=== PATIENT | female | born 1985 | race Caucasian/White ===

== ENCOUNTER 2018-01-25 10:32 | Emergency (ER) | payer OTHER ==
[2018-01-25] MEDS ORDERED: IBUPROFEN 800 MG TABLET PO ONE (11:23)
[2018-01-25] MEDS ORDERED: CYCLOBENZAPRINE HCL 10 MG TABLET PO ONE (11:23)
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
[2018-01-25 12:04] VITALS: BP 121/76
== END 2018-01-25 12:15 | disposition home or self-care (01) ==
LOC: ER 10:32
DX: S16.1XXA Strain of muscle, fascia and tendon at neck level, initial encounter (principal); R51 Headache; M54.9 Dorsalgia, unspecified; M54.2 Cervicalgia; V49.40XA Driver injured in collision with unspecified motor vehicles in traffic accident, initial encounter; Y93.89 Activity, other specified
CPT/HCPCS: 99283

== ENCOUNTER 2018-05-07 13:22 | Emergency (ER) | payer OTHER ==
--- NOTE | 2018-05-07 14:12 | ER Document Report ---
ED Medical Screen (RME) - General Chief Complaint: Pelvic Problem Stated Complaint: PELVIC PAIN Time Seen by Provider: 05/07/18 14:07 Notes: RAPID MEDICAL EVALUATION DISCLOSURE I have seen this patient as part of a Rapid Medical Evaluation and, if applicable, placed any initially appropriate orders. The patient will be seen and fully evaluated, including a full history and physical exam, by a provider ( in Main ED or Fast Track) when a room becomes available. 33-year-old female here with complaints of "something is dropping into my vagina " ongoing for the past 2 months. She states that she was having sex 2 days ago and it worsened. She felt the inside and states that "it feels smooth". She denies any previous history of cervical or uterine prolapse. She states that sometimes when she urinates, "it dribble is some". 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 EXAM No abdominal TTP TRAVEL OUTSIDE OF THE [place] IN LAST 30 DAYS: No - Related Data Allergies/Adverse Reactions: No Known Allergies Allergy (Verified 05/07/18 13:23) Past Medical History - Past Medical History Cardiac Medical History: Denies: Hx Coronary Artery Disease, Hx Heart Attack, Hx Hypertension Pulmonary Medical History: Reports: Hx Pneumonia - child Denies: Hx Asthma, Hx Bronchitis, Hx COPD Neurological Medical History: Denies: Hx Cerebrovascular Accident, Hx Seizures Renal/ Medical History: Denies: Hx Peritoneal Dialysis GI Medical History: Musculoskeltal Medical History: Denies Hx Arthritis, Denies Hx Fibromyalgia, Reports Hx Musculoskeletal Trauma Infectious Medical History: Past Surgical History: Reports: Hx Cholecystectomy. Denies: Hx Pacemaker - Immunizations Immunizations up to date: Yes Hx Diphtheria, Pertussis, Tetanus Vaccination: Yes Physical Exam - Vital signs Vitals: Temp Pulse Resp BP Pulse Ox 98.5 F 87 16 126/80 H 97 05/07/18 13:32 05/07/18 13:32 05/07/18 13:32 05/07/18 13:32 05/07/18 13:32 Course - Vital Signs Vital signs: Temp Pulse Resp BP Pulse Ox 98.5 F 87 16 126/80 H 97 05/07/18 13:32 05/07/18 13:32 05/07/18 13:32 05/07/18 13:32 05/07/18 13:32
--- NOTE | 2018-05-07 14:43 | ER Document Report ---
ED GI/ - General Chief Complaint: Pelvic Problem Stated Complaint: PELVIC PAIN Time Seen by Provider: 05/07/18 14:07 Mode of Arrival: Ambulatory Information source: Patient TRAVEL OUTSIDE OF THE [place] IN LAST 30 DAYS: No - HPI Patient complains to provider of: Vaginal pain Notes: 05/07/18 14:41 Patient is here with complaints of feeling like there is something hanging from her vagina. She states that she has a "heavy feeling" in her vaginal area. States that she felt like something was falling out of her vagina this morning and when she felt and looked she could feel something around she was able to push in. She does report a little bit of vaginal bleeding after intercourse a few nights ago. She has also been having some white thick vaginal discharge for the last few days. She denies any dysuria or hematuria. Complains of some occasional lower abdominal cramping and some lower back pain. She denies any injury. No bowel or bladder dysfunction. She denies fever. She denies rash. She denies numbness, tingling, weakness. She denies blood thinners. No chest pain or shortness of breath. Nothing seems to make her symptoms better or worse. - Related Data Allergies/Adverse Reactions: No Known Allergies Allergy (Verified 05/07/18 13:23) Past Medical History - Social History Smoking Status: Never Smoker Chew tobacco use (# tins/day): No Drug Abuse: None Family History: Reviewed & Not Pertinent Patient has suicidal ideation: No Patient has homicidal ideation: No - Past Medical History Cardiac Medical History: Denies: Hx Coronary Artery Disease, Hx Heart Attack, Hx Hypertension Pulmonary Medical History: Reports: Hx Pneumonia - child Denies: Hx Asthma, Hx Bronchitis, Hx COPD Neurological Medical History: Denies: Hx Cerebrovascular Accident, Hx Seizures Renal/ Medical History: Denies: Hx Peritoneal Dialysis GI Medical History: Musculoskeltal Medical History: Denies Hx Arthritis, Denies Hx Fibromyalgia, Reports Hx Musculoskeletal Trauma Infectious Medical History: Past Surgical History: Reports: Hx Cholecystectomy. Denies: Hx Pacemaker - Immunizations Immunizations up to date: Yes Hx Diphtheria, Pertussis, Tetanus Vaccination: Yes Review of Systems - Review of Systems -: Yes All other systems reviewed and negative Physical Exam - Vital signs Vitals: Temp Pulse Resp BP Pulse Ox 98.5 F 87 16 126/80 H 97 05/07/18 13:32 05/07/18 13:32 05/07/18 13:32 05/07/18 13:32 05/07/18 13:32 - Notes Notes: GENERAL: alert, cooperative, nontoxic, no distress. HEAD: normocephalic, atraumatic EYES: conjunctiva pink without discharge, no external redness or swelling. EARS: no external swelling, no external redness NOSE: atraumatic, no external swelling MOUTH/THROAT: mucous membranes moist and pink, posterior pharynx without erythema, swelling, exudate. No trismus or drooling. NECK: soft, supple, full range of motion, no meningismus. CHEST: no distress, lungs clear and equal throughout. No wheezing, rales, rhonchi. CARDIAC: regular rate and rhythm, no murmur, normal capillary refill, normal pulses. No peripheral edema noted. ABDOMEN: Soft, nontender. BACK: full range of motion, no CVA tenderness. EXTREMITIES: full range of motion of all extremities. No redness, no swelling. NEURO: alert and oriented x 3, no focal deficits, full range of motion of all extremities. PYSCH: appropriate mood, affect. Patient is cooperative. SKIN: pink, warm, dry, no rash. : Performed with female plant mechanic at the bedside. Mild redness and irritation to the labia majora and minora. No lesions or ulcerations. Palpable mass to the right lateral aspect of the vaginal wall. No significant tenderness to palpation. This is easily reducible. Cervix was closed. There was a moderate amount of white thick vaginal discharge present. No cervical motion tenderness. No adnexal tenderness or masses. Course - Re-evaluation Re-evalutation: 05/07/18 16:11 Patient is nontoxic-appearing with stable vitals. Patient is here with complaints of feeling like there is something hanging out of her vagina. This been present for the last few days. She also noticed a little bit of bleeding after intercourse a few days ago. No active bleeding now. She denies any significant pain. No vomiting. No fever. Her abdominal exam is benign with no tenderness. Vaginal exam shows protrusion to the right lateral vaginal wall consistent with possible vaginal wall hernia. Easily reducible and nontender. She did have some vaginal discharge present. Wet prep is negative. GC chlamydia cultures are currently pending, the patient states that she would prefer to wait until the cultures come back and be prophylactically treated. Urinalysis shows leukocyte Estrace with some white blood cells but also squamous epithelials. She denies any significant dysuria. Urine culture is currently pending at this time. This point the patient will be discharged home. She will be contacted if her gonorrhea or chlamydia culture is positive. She will be contacted if her urine culture is positive. She will be referred to [facility] regarding possible vaginal wall hernia. She is instructed to return the emergency department if she develops severe pain, persistent vomiting, fever , or for any further concerns. The patient is noted to have elevated blood pressure during today's emergency department visit. The patient was informed of this finding. The patient was instructed that this may be related to pre-hypertension and requires further evaluation with a primary care provider. The patient has no hypertensive symptoms at this time. The patient's emergency department workup and current diagnosis were explained to the patient and or family. Follow-up instructions were provided. Medications if prescribed were discussed. Instructions for when to return to the emergency department including specific worrisome symptoms were discussed with the patient and/or family. - Vital Signs Vital signs: Temp Pulse Resp BP Pulse Ox 98.5 F 87 16 126/80 H 97 05/07/18 13:32 05/07/18 13:32 05/07/18 13:32 05/07/18 13:32 05/07/18 13:32 - Laboratory Laboratory results interpreted by ok: 05/07/18 14:18 Ur Leukocyte Esterase LARGE H Discharge - Discharge Clinical Impression: Vaginal wall prolapse Condition: Stable Disposition: HOME, SELF-CARE Instructions: Vaginitis ([facility]) Additional Instructions: Follow-up with [facility] at the next available appointment. Return the emergency department for severe pain, fever, persistent vomiting, a mass that you cannot push back into place, or for any further concerns. He will be contacted for any positive cultures. Your blood pressure was elevated during today's visit. Have this rechecked with your doctor. Forms: Elevated Blood Pressure, Smoking Cessation Education Referrals: TI RAZO MD [ACTIVE STAFF] - Follow up as needed
[2018-05-07 14:55] LABS: APPEARANCE,URINE SLIGHTLY-CLOUDY; BILIRUBIN,URINE NEGATIVE (NEGATIVE); COLOR,URINE YELLOW; GLUCOSE, URINE NEGATIVE (NEGATIVE); KETONES,URINE NEGATIVE (NEGATIVE); LEUKOCYTE ESTERASE,URINE LARGE (NEGATIVE); NITRITE,URINE NEGATIVE (NEGATIVE); PROTEIN,URINE NEGATIVE (NEGATIVE); URINE SPECIFIC GRAVITY 1.008; UROBILINOGEN,URINE NEGATIVE mg/dL (<2.0)
[2018-05-07 15:28] LABS: T.VAGINALIS (WET MOUNT) NO TRICHOMONAS SEEN; WBCS (WET MOUNT) 3+ WBCS SEEN; YEAST (WET MOUNT) NO YEAST SEEN
[2018-05-07 16:27] VITALS: BP 119/77
[2018-05-07 16:53] LABS: CHLAM PCR NOT DETECTED (NOT DETECT); GON PCR NOT DETECTED (NOT DETECT)
== END 2018-05-07 16:25 | disposition home or self-care (01) ==
LOC: ER 13:22
DX: N81.10 Cystocele, unspecified (principal); R10.2 Pelvic and perineal pain; R03.0 Elevated blood-pressure reading, without diagnosis of hypertension; Z90.49 Acquired absence of other specified parts of digestive tract
CPT/HCPCS: 81001; 81025; 87086; 87088; 87186; 87210; 87491; 87591; 99284

== ENCOUNTER → 2018-08-23 | Outpatient (CLI) | payer OTHER ==
--- NOTE | 2018-08-23 14:37 | RADIOLOGY REPORT (SQ) ---
EXAM DESCRIPTION: CT PELVIS WITH COMPLETED DATE/TIME: 08/23/2018 1:42 pm REASON FOR STUDY: R19.09 OTHER INTRA-ABDOMINAL AND PELVIC SWELLING, MASS AND LUMP R19.09 OTHER INTR A-ABDOMINAL AND PELVIC SWELLING, MASS AND L COMPARISON: None. TECHNIQUE: CT scan of the pelvis performed with intravenous contrast. No oral contrast. Patient was injected with 100 mL of Omnipaque 350 IV without complication. Creatinine not required, patient less than 50 years old. Images reviewed with soft tissue and bone windows. Reconstructed coronal and sagittal MPR images rev iewed. All images stored on PACS. All CT scanners at this facility use dose modulation, iterative reconstruction, and/or weight based d osing when appropriate to reduce radiation dose to as low as reasonably achievable (ALARA). [facility]: Dose Right [facility]: CareDose [facility]: Dose Right [facility]: Teradose 4D [facility]: [employer] RADIATION DOSE: CT Rad equipment meets quality standard of care and radiation dose reduction techniq ues were employed. CTDIvol: 18.9 - 21.3 mGy. DLP: 1286 mGy-cm. mGy. LIMITATIONS: None. FINDINGS: A 3.8 cm craniocaudad by 3.3 cm transverse by 2 cm AP with cystic structure is present in the anterior upper 3rd of the vagina just to the left of midline. This is best shown on axial image 36 and sagittal image 48. This most likely represents a Que duct cyst along the anterolateral va ginal wall superior to the level of symphysis pubis. No other pelvic cysts or masses. No free pelvic fluid. No adenopathy. Uterus measures 10.5 x 5 x 7 cm in size. No fibroids. Endometrial stripe difficult to visualize by CT. Right ovary is 3 x 2.7 cm in size. Left ovary 3.7 x 2.6 cm in size. Urinary bladder, rectum unremarkable. Delayed images through the pelvis demonstrate that the left ureter is discrete from the vaginal lesio n. Bony structures unremarkable. No inguinal or femoral hernia. IMPRESSION: 3.8 x 3.3 x 2 cm cyst in the anterior upper 3rd of the vagina, likely a Que duct cys t. COMMENT: Radiographics;2011:31:[id number] TECHNICAL DOCUMENTATION: JOB ID: [id number] Quality ID # [id number]: Final reports with documentation of one or more dose reduction techniques (e.g., Au tomated exposure control, adjustment of the mA and/or kV according to patient size, use of iterative reconstruction technique) 2010 [employer]- All Rights Reserved Reading location - IP/workstation name: [email or web address]
== END ==
LOC: RAD 13:57
PROVIDERS: ATTEND Specialist
DX: R19.09 Other intra-abdominal and pelvic swelling, mass and lump (principal)
CPT/HCPCS: 72193

== ENCOUNTER 2018-10-13 05:43 | Day surgery (SDC) | payer OTHER ==
[2018-10-11 12:29] LABS: APPEARANCE,URINE SLIGHTLY-CLOUDY; BILIRUBIN,URINE NEGATIVE (NEGATIVE); COLOR,URINE STRAW; GLUCOSE, URINE NEGATIVE (NEGATIVE); KETONES,URINE NEGATIVE (NEGATIVE); LEUKOCYTE ESTERASE,URINE LARGE (NEGATIVE); NITRITE,URINE NEGATIVE (NEGATIVE); PROTEIN,URINE NEGATIVE (NEGATIVE); URINE SPECIFIC GRAVITY 1.004; UROBILINOGEN,URINE NEGATIVE mg/dL (<2.0)
[2018-10-11 13:05] LABS: HEMATOCRIT 39.6 % (36.0-47.0); HEMOGLOBIN 13.5 g/dL (12.0-15.5); MEAN CORPUSCULAR HEMOGLOBIN 30.4 pg (27.0-33.4); MEAN CORPUSCULAR HGB CONC 34.2 g/dL (32.0-36.0); MEAN CORPUSCULAR VOLUME 89 fl (80-97); PLATELET COUNT 344 10^3/uL (150-450); RED BLOOD COUNT 4.46 10^6/uL (3.72-5.28); RED CELL DISTRIBUTION WIDTH 13.6 % (11.5-14.0); WHITE BLOOD COUNT 8.3 10^3/uL (4.0-10.5)
[2018-10-11 13:32] LABS: ANION GAP 11 (5-19); BLOOD UREA NITROGEN 6 mg/dL (7-20); CALCIUM 9.5 mg/dL (8.4-10.2); CARBON DIOXIDE 27 mmol/L (22-30); CHLORIDE 102 mmol/L (98-107); GLUCOSE 88 mg/dL (75-110); POTASSIUM 4.4 mmol/L (3.6-5.0); SODIUM 140.4 mmol/L (137-145)
[~2018-10-13 05:43] MED LIST: CEFAZOLIN 1 GM/D5W RTU 1 GM/50 ML RTUPB IV ONE; CEFAZOLIN 1 GM/D5W RTU 1 GM/50 ML RTUPB IV PRN; LACTATED RINGERS 1000 ML IV PRN; LIDOCAINE 0.5% INJ-PF (5 MG/ML) 50 ML SDV SUBCUT PRN
[2018-10-13] MEDS ORDERED: PROPOFOL INJ 200 MG/20 ML VIAL IV ONE (06:59)
[2018-10-13] MEDS ORDERED: MIDAZOLAM 2 MG/2 ML INJ ONE (06:59)
[2018-10-13] MEDS ORDERED: FENTANYL CITRATE INJ/PF 100 MCG/2 ML AMPUL ONE (06:59)
[2018-10-13] MEDS ORDERED: ONDANSETRON HCL INJ/PF 4 MG/2 ML SDV ONE (06:59)
[2018-10-13] MEDS ORDERED: LIDOCAINE 1%/EPINEPHRINE INJ 20 ML VIAL ONE (07:21)
[2018-10-13] MEDS ORDERED: PROMETHAZINE HCL INJ 25 MG/1 ML VIAL IV PRN (07:36)
[2018-10-13] MEDS ORDERED: MORPHINE SULFATE 10 MG/ML INJ IV PRN (07:36)
[2018-10-13] MEDS ORDERED: FENTANYL CITRATE INJ/PF 100 MCG/2 ML AMPUL IV PRN ×3 (07:36)
[2018-10-13] MEDS ORDERED: DIPHENHYDRAMINE HCL 50 MG/ML VIAL IV PRN (07:36)
[2018-10-13] MEDS ORDERED: MEPERIDINE HCL/PF INJ 25 MG/1 ML DISP.SYRIN IV PRN (07:36)
[2018-10-13] MEDS ORDERED: MICROFIBRILLAR COLLAGEN 1 GM PACK ONE (08:18)
[2018-10-13] MEDS ORDERED: MORPHINE INJ 4 MG DOSE (EDIT ROUTE) INJ PRN (08:30)
[2018-10-13] MEDS ORDERED: PROMETHAZINE HCL INJ 25 MG/1 ML VIAL IM PRN (08:30)
[2018-10-13] MEDS ORDERED: OXYCODONE-ACETAMINOPHEN 5-325 MG TABLET PO PRN (08:30)
[2018-10-13 09:28] VITALS: BP 119/74
[2018-10-13] MEDS ORDERED: IBUPROFEN 800 MG TABLET PO SCH (14:00)
--- NOTE | 2018-10-13 15:08 | OPERATIVE REPORT E ---
Operative Report NAME: GAGANDEEP NEWTON : 1985 AGE: 33Y DATE OF SURGERY: 10/13/2018 ROOM: PREOPERATIVE DIAGNOSIS: Vaginal cyst. POSTOPERATIVE DIAGNOSIS: Vaginal cyst. PROCEDURE: Wide local excision vaginal wall cyst. SURGEON: FERNANDO BENEDICT M.D. ANESTHESIA: LMAC and local 1% lidocaine with epinephrine. ESTIMATED BLOOD LOSS: Less than 5 mL. COMPLICATIONS: None. FINDINGS: An approximately 3 cm anterior to the cervix vaginal wall cyst that was fluctuant and filled with a yellow, mucusy material. No inflammation was encountered. Exam under anesthesia demonstrated no masses appreciated. The bladder was left undrained. INDICATIONS FOR PROCEDURE: The patient had symptomatic pelvic vaginal mass that bothered her during intercourse. Preoperative CT scan demonstrated no communication with the bladder, ureters, or ureterocervix. There appeared to be perhaps a Que's duct cyst or a lipoma preoperatively. The usual risk of bleeding, infection, anesthesia, and damage to organs and tissues were discussed and the patient understood. DESCRIPTION OF PROCEDURE: The patient was taken to the operating room and placed in the modified lithotomy position. After adequate anesthesia was ascertained and surgical timeout was performed and antibiotics had been given, stay sutures were placed. The lesion involving the operative field excised en toto and the bed of the vagina was oversewn with running 0 chromic catgut in a locking fashion. of the procedure. Specimens were sent for pathology. The patient was awakened and taken to recovery in stable condition. DICTATING PHYSICIAN: FERNANDO BENEDICT M.D. [id number] PHY#: [id number] ID: [id number] JOB#: [id number] ACCT: [id number] cc:FERNANDO BENEDICT M.D. >
== END 2018-10-13 09:25 | disposition home or self-care (01) ==
LOC: OROUT 05:43
PROVIDERS: ATTEND Specialist
DX: Q52.4 Other congenital malformations of vagina (principal); A63.0 Anogenital (venereal) warts; Z79.899 Other long term (current) drug therapy; F41.9 Anxiety disorder, unspecified
CPT/HCPCS: 86900; 86901; 36415; 86850; 85027; 81025; 80048; 81001; 88305 ×2; 57135; J2250; J0690; J3010; J3490; J2405; J2704; 940

== ENCOUNTER 2019-12-08 19:23 | Outpatient (CLI) | payer OTHER, MEDICAID ==
[2019-12-08 20:30] LABS: APPEARANCE,URINE CLEAR; BILIRUBIN,URINE NEGATIVE (NEGATIVE); COLOR,URINE YELLOW; GLUCOSE, URINE NEGATIVE (NEGATIVE); KETONES,URINE NEGATIVE (NEGATIVE); LEUKOCYTE ESTERASE,URINE MODERATE (NEGATIVE); NITRITE,URINE NEGATIVE (NEGATIVE); PROTEIN,URINE NEGATIVE (NEGATIVE); URINE SPECIFIC GRAVITY 1.008; UROBILINOGEN,URINE NEGATIVE mg/dL (<2.0)
[2019-12-08 20:43] LABS: URINE AMPHETAMINES SCREEN NEGATIVE; URINE BARBITURATES SCREEN NEGATIVE; URINE BENZODIAZEPINES SCREEN NEGATIVE; URINE COCAINE SCREEN NEGATIVE; URINE MARIJUANA (THC) SCREEN NEGATIVE; URINE METHADONE SCREEN NEGATIVE; URINE PHENCYCLIDINE SCREEN NEGATIVE
== END 2019-12-08 20:48 | disposition home or self-care (01) ==
LOC: LC 19:23
PROVIDERS: ATTEND Obstetrics & Gynecology Gynecology
PROC: 4A1HXCZ Monitoring of Products of Conception, Cardiac Rate, External Approach (ICD-10-PCS; principal; 2019-12-08)
DX: O36.8120 Decreased fetal movements, second trimester, not applicable or unspecified (principal); Z3A.24 24 weeks gestation of pregnancy
CPT/HCPCS: 80307; 81001

== ENCOUNTER 2020-03-19 05:05 | Inpatient (IN) | payer MEDICAID, OTHER ==
[2020-03-14 10:26] LABS: ABSOLUTE BASOPHILS # (AUTO) 0.1 10^3/uL (0.0-0.2); ABSOLUTE EOSINOPHILS # (AUTO) 0.1 10^3/uL (0.0-0.6); ABSOLUTE LYMPHOCYTES (AUTO) 1.8 10^3/uL (0.5-4.7); ABSOLUTE MONOCYTES (AUTO) 0.6 10^3/uL (0.1-1.4); ABSOLUTE NEUT (AUTO) 6.7 10^3/uL (1.7-8.2); BASOPHILS % (AUTO) 0.5 % (0-2); EOSINOPHILS % (AUTO) 1.6 % (0-6); HEMATOCRIT 32.1 % (36.0-47.0); HEMOGLOBIN 10.9 g/dL (12.0-15.5); LYMPHOCYTES % (AUTO) 19.3 % (13-45); MEAN CORPUSCULAR HEMOGLOBIN 27.6 pg (27.0-33.4); MEAN CORPUSCULAR HGB CONC 33.9 g/dL (32.0-36.0); MEAN CORPUSCULAR VOLUME 81 fl (80-97); MONOCYTES % (AUTO) 6.8 % (3-13); PLATELET COUNT 253 10^3/uL (150-450); RED BLOOD COUNT 3.94 10^6/uL (3.72-5.28); RED CELL DISTRIBUTION WIDTH 14.2 % (11.5-14.0); SEGMENTED NEUTROPHILS % (AUTO) 71.8 % (42-78); TOTAL CELLS COUNTED % (AUTO) 100 %; WHITE BLOOD COUNT 9.3 10^3/uL (4.0-10.5)
[2020-03-14 10:40] LABS: APPEARANCE,URINE CLOUDY; BILIRUBIN,URINE NEGATIVE (NEGATIVE); COLOR,URINE YELLOW; GLUCOSE, URINE NEGATIVE (NEGATIVE); KETONES,URINE NEGATIVE (NEGATIVE); LEUKOCYTE ESTERASE,URINE LARGE (NEGATIVE); NITRITE,URINE NEGATIVE (NEGATIVE); PROTEIN,URINE 30 mg/dL (NEGATIVE); URINE SPECIFIC GRAVITY 1.016; UROBILINOGEN,URINE NEGATIVE mg/dL (<2.0)
[2020-03-14 12:02] LABS: CHLAM PCR NOT DETECTED (NOT DETECT)
[2020-03-14 14:01] LABS: URINE AMPHETAMINES SCREEN NEGATIVE; URINE BARBITURATES SCREEN NEGATIVE; URINE BENZODIAZEPINES SCREEN NEGATIVE; URINE COCAINE SCREEN NEGATIVE; URINE MARIJUANA (THC) SCREEN NEGATIVE; URINE METHADONE SCREEN NEGATIVE; URINE PHENCYCLIDINE SCREEN NEGATIVE
[2020-03-19] MEDS ORDERED: CEFAZOLIN 2 GM/D5W RTU 2 GM/50 ML RTUPB IV PRN (06:38)
[2020-03-19] MEDS ORDERED: RINGERS SOLUTION,LACTATED 1,000 ML IV ONE (06:45)
[2020-03-19] MEDS ORDERED: CEFAZOLIN INJ 1 GM VIAL ONE (06:51)
[2020-03-19] MEDS ORDERED: PHENYLEPHRINE HCL INJ/PF 10 MG/1 ML SDV ONE (07:44)
[2020-03-19] MEDS ORDERED: KETOROLAC TROMETHAMINE INJ/PF 30 MG/1 ML SDV ONE (07:44)
[2020-03-19] MEDS ORDERED: FENTANYL CITRATE INJ/PF 100 MCG/2 ML AMPUL ONE (07:44)
[2020-03-19] MEDS ORDERED: OXYTOCIN 10 UNIT/ML VIAL ONE (07:44)
[2020-03-19] MEDS ORDERED: EPHEDRINE SULFATE INJ 50 MG/1 ML AMPULE ONE (07:44)
[2020-03-19] MEDS ORDERED: ACETAMINOPHEN 1,000 MG/100 ML RTUPB IV ONE (07:45)
[2020-03-19] MEDS ORDERED: ONDANSETRON HCL INJ/PF 4 MG/2 ML SDV ONE (07:45)
[2020-03-19] MEDS ORDERED: MIDAZOLAM 2 MG/2 ML INJ ONE (07:45)
[2020-03-19] MEDS ORDERED: OXYTOCIN/NORMAL SALINE 20 UNIT/1,000 ML RTUINJ ONE (07:45)
[2020-03-19] MEDS ORDERED: ONDANSETRON HCL INJ/PF 4 MG/2 ML SDV IV PRN (08:23)
[2020-03-19] MEDS ORDERED: OXYCODONE-ACETAMINOPHEN 5-325 MG TABLET PO PRN ×3 (08:23→10:11)
[2020-03-19] MEDS ORDERED: FENTANYL CITRATE INJ/PF 100 MCG/2 ML AMPUL IV PRN ×3 (08:23)
[2020-03-19] MEDS ORDERED: DIPHENHYDRAMINE HCL 50 MG/ML VIAL IV PRN (08:23)
[2020-03-19] MEDS ORDERED: PROMETHAZINE HCL INJ 25 MG/1 ML VIAL IV PRN ×4 (08:23→14:30)
[2020-03-19] MEDS ORDERED: MEPERIDINE HCL/PF INJ 25 MG/1 ML DISP.SYRIN IV PRN (08:23)
[2020-03-19] MEDS ORDERED: NALBUPHINE HCL INJ 10 MG/1 ML AMPULE ONE (09:11)
[2020-03-19] MEDS ORDERED: SIMETHICONE 80 MG TAB.CHEW PO PRN (10:11)
[2020-03-19] MEDS ORDERED: OXYTOCIN/NORMAL SALINE 20 UNIT/1,000 ML RTUINJ IV PRN (10:11)
[2020-03-19] MEDS ORDERED: ACETAMINOPHEN 1,000 MG/100 ML RTUPB IV PRN (10:11)
[2020-03-19] MEDS ORDERED: MEASLES,MUMPS&RUBELLA VACC/PF 0.5 ML VIAL SUBCUT PRN ×2 (10:11→14:00)
[2020-03-19] MEDS ORDERED: RINGERS SOLUTION,LACTATED 1,000 ML IV PRN (10:11)
[2020-03-19] MEDS ORDERED: DIPH/PERTUSS(ACELL)/TETANUS VAC/PF 0.5 ML SYR (>=10YO) IM PRN ×2 (10:11→14:00)
[2020-03-19] MEDS ORDERED: ACETAMINOPHEN 325 MG TABLET PO PRN (10:11)
[2020-03-19] MEDS ORDERED: HYDROMORPHONE HCL INJ/PF 2 MG/ML AMPULE ONE (10:33)
[2020-03-19] MEDS: HYDROMORPHONE HCL INJ/PF 2 MG/ML AMPULE IV PRN ×2 (10:37→14:00)
[2020-03-19] MEDS ORDERED: CITALOPRAM HYDROBROMIDE 20 MG TABLET PO SCH (11:00)
--- NOTE | 2020-03-19 11:57 | Brief Operative Note ---
BRIEF OPERATIVE REPORT DATE OF SURGERY: 03/19/20 TIME OF SURGERY: 08:00 PREOPERATIVE DIAGNOSIS: PUND at 39+0ega, , H/o perineoplasty. Undesired fertility POSTOPERATIVE DIAGNOSIS: JAMAR - delivered SURGEON: JOE AUGUSTE FINDINGS: VFI delivered at 0815, Apgars 8/9, weight 3780g (8#5oz). Bilateral [place] BTL. IVF 1200ml, UOP 250ml, QBL 825ml COMPLICATIONS: none ESTIMATED BLOOD LOSS: 825ml TISSUE REMOVED OR ALTERED: placenta and cord - not sent to pathology. bilateral portions of fallopian tubes sent to pathology TECHNICAL PROCEDURE: Primary section with [place] Bilateral tubal ligation.
--- NOTE | 2020-03-19 11:59 | PDOC DELIVERY SUMMARY ---
Delivery Summary - Maternal Hx : IV Hx Para: III Hx # Term Pregnancies: 3 Hx # Pregnancies: 0 Hx Total # of Abortions (Sponateous & Elective): 0 Number of Living Children: 3 SYEDA: 03/26/20 Gestational Age: 39 Risk Factors: Other - h/o perineoplasty Ruptured Membranes: AROM Time of Rupture: 08:14 Fluids: Clear Fluid Description: normal - Delivery Labor: Not In Labor Presentation: Vertex Heart Rate Monitoring: Done Pre-Operatively Uterine Contraction Monitoring: External Support Person Present: Yes Location: OR : Scheduled Placenta: Within Normal Limits Placenta Description: normal Number of Vessels (Cord): 3 Nuchal Cord: Yes Delivery of Placenta Date: 03/19/20 Delivery of Placenta Time: 08:16 Estimated Blood Loss: 600 Delivery Quantitative Blood Loss (QBL): 825 - Medications Type of Anesthesia:: Spinal - Assess and Care Baby 1 Female Delivery of Date: 03/19/20 Delivery of Infant Time: 08:15 at 1 minute: 8 at 5 minutes: 9 Preprinted Number On Band: [id number] Infant Skin to Skin: No To Nursery At: 08:27 Mode of Transport: Bassinet Delivery Weight: 3,780 Infant Delivery Length: 19.5 in - Delivery Personnel Commercial [employer] Associate: CK MCKEON RN: LORETO GU RN: DANII TELLO MD: JOE AUGUSTE
[2020-03-19] MEDS: OXYCODONE-ACETAMINOPHEN 5-325 MG TABLET PO PRN ×3 (12:36→22:04)
[2020-03-19] MEDS ORDERED: KETOROLAC TROMETHAMINE INJ/PF 30 MG/1 ML SDV IV SCH (14:00)
[2020-03-19] MEDS: KETOROLAC TROMETHAMINE INJ/PF 30 MG/1 ML SDV IV SCH (17:16)
[2020-03-19] MEDS: DOCUSATE SODIUM 100 MG CAPSULE PO SCH (17:16)
--- NOTE | 2020-03-19 21:11 | Operative Report ---
Operative Report DATE OF SURGERY: 03/19/20 PREOPERATIVE DIAGNOSIS: PUND at 39+0ega, , H/o perineoplasty. Undesired fertility POSTOPERATIVE DIAGNOSIS: JAMAR OPERATION: Primary Section with [place] Bilateral Tubal ligation SURGEON: JOE AUGUSTE ANESTHESIA: Spinal TISSUE REMOVED OR ALTERED: placenta and cord not sent to pathology, bilateral portions of fallopian tube sent to pathology COMPLICATIONS: None ESTIMATED BLOOD LOSS: 600 QUANTITATIVE BLOOD LOSS: 825 INTRAOPERATIVE FINDINGS: VFI delivered at 0815, Apgars 8/9, weight 3780g (8#5oz). Bilateral [place] BTL. IVF 1200ml, UOP 250ml, QBL 825ml PROCEDURE: Anesthesia provider: [Dr. Belen Jenkins] Urine output: [1200ml] IV fluids: [250ml] Indications: [34yo at 39+0ega presents for Primary section with Bilateral tubal ligation due to prior perineoplasty after last delivery. She is 100% sure that she has completed childbearing. She desires to have permanent sterilization. THe risks, benefits, alternatives were reviewed and she desired to proceed with planned procedure.] Procedure: The patient was taken to the operating room where spinal anesthesia was obtained and found to be adequate. She was then prepped and draped in the normal sterile fashion and placed in the dorsal supine position with a leftward tilt. A Pfannenstiel skin incision was then made and carried through to the underlying layers of the fascia with the scalpel. The fascia was incised in the midline and the incision extended laterally with the Jeffries scissors. The superior aspect of the fascial incision was then grasped with Dalia clamps elevated and the underlying rectus muscles dissected off [bluntly]. Attention was then turned to the inferior aspect of the fascial incision which in a similar fashion was grasped, tented up with Dalia clamps, and the rectus muscles dissected off [bluntly]. The rectus muscles were then in the midline and the peritoneum at the amount identified and entered [bluntly]. The peritoneal incision was then extended superiorly and inferiorly with good visualization of the bladder. The bladder blade was inserted and the vesicouterine peritoneum identified grasped with [place] pickups and entered sharply with the Metzenbaum scissors. This incision was then extended laterally with the Metzenbaum scissors and a bladder flap created digitally. The bladder blade was then reinserted and the lower uterine segment incised in a transverse fashion with the scalpel. The uterine incision was then extended bluntly. The bladder blade was removed and the infant's head was delivered from cephalic presentation atraumatically. The nose and mouth were suctioned and the cord doubly clamped and cut. And the infant was handed off to waiting pediatricians. The placenta was then delivered spontaneously and the uterus exteriorized and cl eared of all clots and debris. The uterine incision was then repaired with 1-0 Vicryl in a running locked fashion. A second layer of the same suture was used to obtain hemostasis via imbrication of the initial layer. The bladder flap was then repaired with 3-0 chromic in a running fashion. The right fallopian tube was identified and [place] tubal ligation performed in the usual fashion and t his was repeated on the patients left. The uterus was returned to the patient's abdomen and Interceed was placed overlying the uterine incision to prevent adhesions. Surgicel was placed for additional hemostasis. The gutters were cleared of all clots and debris. All operative sites were noted to be hemostatic. The fascia was reapproximated with 0 Vicryl in a running fashion from each lateral edge to the midline. The skin was closed with 3-0 Monocryl in a running subcuticular fashion with overlying Dermabond for additional dressing as well as wound closure. The patient tolerated the procedure well. Sponge lap needle and instrument counts are correct times 2. 2 g of Ancef were given prior to skin incision. The patient was taken to the recovery area awake and in stable condition.
[2020-03-19] MEDS: CITALOPRAM HYDROBROMIDE 20 MG TABLET PO SCH (21:34)
[2020-03-20] MEDS: KETOROLAC TROMETHAMINE INJ/PF 30 MG/1 ML SDV IV SCH (01:57)
[2020-03-20] MEDS ORDERED: LIDOCAINE 0.5% INJ-PF (5 MG/ML) 50 ML SDV SUBCUT PRN (05:00)
[2020-03-20] MEDS ORDERED: LACTATED RINGERS 1000 ML IV PRN (05:00)
[2020-03-20] MEDS: OXYCODONE-ACETAMINOPHEN 5-325 MG TABLET PO PRN ×3 (07:49→18:58)
[2020-03-20 07:51] LABS: HEMATOCRIT 27.7 % (36.0-47.0); HEMOGLOBIN 9.2 g/dL (12.0-15.5); MEAN CORPUSCULAR HGB CONC 33.1 g/dL (32.0-36.0); MEAN CORPUSCULAR VOLUME 82 fl (80-97); PLATELET COUNT 277 10^3/uL (150-450); RED CELL DISTRIBUTION WIDTH 14.5 % (11.5-14.0); WHITE BLOOD COUNT 12.2 10^3/uL (4.0-10.5)
[2020-03-20] MEDS: SIMETHICONE 80 MG TAB.CHEW PO PRN ×2 (07:54→19:01)
--- NOTE | 2020-03-20 09:12 | PDOC PROGRESS REPORT ---
Subjective-OB Progress Note for:: 03/20/20 - POD #1, s/p Primary section. Hx of perineoplasty. Pt up walking in the [place], Denies c/o pain, +passing gas, voiding. O+, Rubella Non-immune, bottlefeeding Physical Exam (OB) Vital Signs: Temp Pulse Resp BP Pulse Ox 98.0 F 90 18 144/73 H 98 03/20/20 08:00 03/20/20 08:00 03/20/20 08:00 03/20/20 08:00 03/20/20 08:00 Intake & Output 03/19/20 03/20/20 03/21/20 06:59 06:59 06:59 Intake Total 1200 Output Total 2140 Balance -940 Weight 113.398 kg - General General Appearance: Appears well, Alert In distress: None - PIH/Pre-Eclampsia DTR's: 1 + Clonus: Negative Headache: Absent Epigastric Pain: No Visual Changes: No - Dressing Removed: No - no dressing Incision: Well Approximated Closure Type: Surgical Glue - Lochia Lochia Amount: Small 10-25 ml Lochia Color: Rubra/Red - Abdomen Description: Soft, Round Hernia Present: No Fundal Description: Firm, Midline Fundal Height: 1/u - 2/u - Respiratory Respiratory Status: No respiratory distress - Genitourinary Genitourinary Note: voiding - Extremities Upper extremity: Normal inspection Lower extremities: Normal inspection - Neurological Cognition: Normal Orientation: AAOx4 - Psychological Associated symptoms: Normal affect, Normal mood Objective-Diagnostic Laboratory: 03/20/20 07:42 03/20/20 07:42 WBC 12.2 H RBC 3.40 L Hgb 9.2 L Hct 27.7 L MCV 82 MCH 27.0 MCHC 33.1 RDW 14.5 H Plt Count 277 Assessment and Plan(PN) - Assessment and Plan (1) Acute blood loss as cause of postoperative anemia Is this a current diagnosis for this admission?: Yes (2) Normal course Is this a current diagnosis for this admission?: Yes (3) S/P primary low transverse Is this a current diagnosis for this admission?: Yes (4) Sterilization Is this a current diagnosis for this admission?: Yes Plan:: Ambulation encouraged, Routine PP orders - Time Spent with Patient Time with patient: Less than 15 minutes Medications reviewed and adjusted accordingly: Yes - Disposition Anticipated Discharge: Home Within: within 48 hours
[2020-03-20] MEDS ORDERED: (PENDING PHARMACY ID) (Citalopram Hydrobromide [Celexa 40 Mg Tablet] 1 TAB) PO SCH (10:00)
[2020-03-20] MEDS: DOCUSATE SODIUM 100 MG CAPSULE PO SCH ×2 (10:45→18:58)
[2020-03-20] MEDS: FERROUS SULFATE 325 MG TABLET PO SCH (10:45)
[2020-03-20] MEDS: PRENATAL VITAMIN W DHA CAPSULE PO SCH (10:47)
[2020-03-20] MEDS: IBUPROFEN 800 MG TABLET PO SCH ×3 (11:23→23:59)
[2020-03-20] MEDS: CITALOPRAM HYDROBROMIDE 20 MG TABLET PO SCH (21:19)
[2020-03-21] MEDS: OXYCODONE-ACETAMINOPHEN 5-325 MG TABLET PO PRN ×4 (05:10→16:10)
[2020-03-21] MEDS: SIMETHICONE 80 MG TAB.CHEW PO PRN ×2 (05:10)
[2020-03-21] MEDS: IBUPROFEN 800 MG TABLET PO SCH ×3 (05:10→17:27)
[2020-03-21] MEDS: PRENATAL VITAMIN W DHA CAPSULE PO SCH (10:25)
[2020-03-21] MEDS: FERROUS SULFATE 325 MG TABLET PO SCH (10:25)
[2020-03-21] MEDS: DOCUSATE SODIUM 100 MG CAPSULE PO SCH ×2 (10:25→17:27)
--- NOTE | 2020-03-21 12:48 | PDOC DISCHARGE SUMMARY ---
Impression - Admit/DC Date/PCP Admission Date/Primary Care Provider: 03/19/20 05:05 Discharge Date: 03/21/20 - Discharge Diagnosis (1) Anemia complicating , third trimester Is this a current diagnosis for this admission?: Yes (2) Acute blood loss as cause of postoperative anemia Is this a current diagnosis for this admission?: Yes (3) Normal course Is this a current diagnosis for this admission?: Yes (4) S/P primary low transverse Is this a current diagnosis for this admission?: Yes (5) Sterilization Is this a current diagnosis for this admission?: Yes - Assessment Summary: 34yo G4 now P4 s/p primary with BTL ppd2 stable and ready for discharge. Has incision f/u appt scheduled, understands warning s/s and when to rtc/[facility] prior to scheduled appt - Additional Information Resuscitation Status: Full Code Discharge Diet: As Tolerated, Regular Discharge Activity: Activity As Tolerated, Balance Activity w/Rest, No Lifting Over 10 Pounds, No Lifting/Push/Pulling, Pelvic Rest, No tub bath, Walk Frequently Prescriptions: Oxycodone HCl/Acetaminophen [Percocet 5-325 mg Tablet] 1 tab PO Q4HP PRN #20 tablet PRN Reason: For Pain Scale 3-5 Ibuprofen [Motrin 800 mg Tablet] 800 mg PO Q8HP PRN #20 tablet PRN Reason: For Pain Scale 1-3 Docusate Sodium [Colace 100 mg Capsule] 100 mg PO BID #60 capsule Ferrous Sulfate [Feosol 325 mg Tablet] 325 mg PO DAILY #60 tablet Home Medications: Citalopram Hydrobromide [Celexa 40 mg Tablet] 1 tab PO DAILY 05/07/18 Pediatric Multivitamin No.42 [Flintstones] 1 tab PO DAILY 12/08/19 Docusate Sodium [Colace 100 mg Capsule] 100 mg PO BID #60 capsule 03/21/20 Ferrous Sulfate [Feosol 325 mg Tablet] 325 mg PO DAILY #60 tablet 03/21/20 Ibuprofen [Motrin 800 mg Tablet] 800 mg PO Q8HP PRN #20 tablet 03/21/20 Oxycodone HCl/Acetaminophen [Percocet 5-325 mg Tablet] 1 tab PO Q4HP PRN #20 tablet 03/21/20 Results Laboratory Results: WBC 12.2 10^3/uL (4.0-10.5) H 03/20/20 07:42 RBC 3.40 10^6/uL (3.72-5.28) L 03/20/20 07:42 Hgb 9.2 g/dL (12.0-15.5) L 03/20/20 07:42 Hct 27.7 % (36.0-47.0) L 03/20/20 07:42 MCV 82 fl (80-97) 03/20/20 07:42 MCH 27.0 pg (27.0-33.4) 03/20/20 07:42 MCHC 33.1 g/dL (32.0-36.0) 03/20/20 07:42 RDW 14.5 % (11.5-14.0) H 03/20/20 07:42 Plt Count 277 10^3/uL (150-450) 03/20/20 07:42 Lymph % (Auto) 19.3 % (13-45) 03/14/20 09:53 [place]comb % (Auto) 6.8 % (3-13) 03/14/20 09:53 Eos % (Auto) 1.6 % (0-6) 03/14/20 09:53 Baso % (Auto) 0.5 % (0-2) 03/14/20 09:53 Absolute Neuts (auto) 6.7 10^3/uL (1.7-8.2) 03/14/20 09:53 Absolute Lymphs (auto) 1.8 10^3/uL (0.5-4.7) 03/14/20 09:53 Absolute Monos (auto) 0.6 10^3/uL (0.1-1.4) 03/14/20 09:53 Absolute Eos (auto) 0.1 10^3/uL (0.0-0.6) 03/14/20 09:53 Absolute Basos (auto) 0.1 10^3/uL (0.0-0.2) 03/14/20 09:53 Seg Neutrophils % 71.8 % (42-78) 03/14/20 09:53 Urine Color YELLOW 03/14/20 10:00 Urine Appearance CLOUDY 03/14/20 10:00 Urine pH 6.0 (5.0-9.0) 03/14/20 10:00 Ur Specific [place] 1.016 03/14/20 10:00 Urine Protein 30 mg/dL (NEGATIVE) H 03/14/20 10:00 Urine Glucose (UA) NEGATIVE mg/dL (NEGATIVE) 03/14/20 10:00 Urine Ketones NEGATIVE mg/dL (NEGATIVE) 03/14/20 10:00 Urine Blood NEGATIVE (NEGATIVE) 03/14/20 10:00 Urine Nitrite NEGATIVE (NEGATIVE) 03/14/20 10:00 Urine Bilirubin NEGATIVE (NEGATIVE) 03/14/20 10:00 Urine Urobilinogen NEGATIVE mg/dL (<2.0) 03/14/20 10:00 Ur Leukocyte Esterase LARGE (NEGATIVE) H 03/14/20 10:00 Urine WBC (Auto) >182 /HPF 03/14/20 10:00 Urine RBC (Auto) 9 /HPF 03/14/20 10:00 Urine Bacteria (Auto) 3+ /HPF 03/14/20 10:00 Urine WBC Clumps FEW /HPF 03/14/20 10:00 Squamous Epi Cells Auto 13 /HPF 03/14/20 10:00 Urine Mucus (Auto) RARE /LPF 03/14/20 10:00 Urine Ascorbic Acid NEGATIVE (NEGATIVE) 03/14/20 10:00 Urine Opiates Screen NEGATIVE 03/14/20 10:00 Urine Methadone Screen NEGATIVE 03/14/20 10:00 Ur Barbiturates Screen NEGATIVE 03/14/20 10:00 Ur Phencyclidine Scrn NEGATIVE 03/14/20 10:00 Ur Amphetamines Screen NEGATIVE 03/14/20 10:00 U Benzodiazepines Scrn NEGATIVE 03/14/20 10:00 Urine Cocaine Screen NEGATIVE 03/14/20 10:00 U Marijuana (THC) Screen NEGATIVE 03/14/20 10:00 Chlamydia DNA (PCR) NOT DETECTED (NOT DETECT) 03/14/20 10:00 COVID-19 Source NASOPHARYNGEAL 03/14/20 09:45 COVID-19 (CYNDI) NOT DETECTED 03/14/20 09:45 N.gonorrhoeae DNA (PCR) NOT DETECTED (NOT DETECT) 03/14/20 10:00 Blood Type O POSITIVE 03/17/20 11:55 Antibody Screen NEGATIVE 03/17/20 11:55
[2020-03-21 13:09] VITALS: BP 140/74
== END 2020-03-21 18:49 | disposition home or self-care (01) | DRG 785 ==
LOC: 2S 05:05
PROVIDERS: ADMIT Student in an Organized Health Care Education/Training Program; ATTEND Student in an Organized Health Care Education/Training Program
PROC: 0UB70ZZ Excision of Bilateral Fallopian Tubes, Open Approach (ICD-10-PCS; 2020-03-19)
PROC: 10D00Z1 Extraction of Products of Conception, Low, Open Approach (ICD-10-PCS; principal; 2020-03-19 07:45)
PROC: 3E0234Z Introduction of Serum, Toxoid and Vaccine into Muscle, Percutaneous Approach (ICD-10-PCS; 2020-03-21)
DX: O82 Encounter for cesarean delivery without indication (principal); Z30.2 Encounter for sterilization; O99.02 Anemia complicating childbirth; D64.9 Anemia, unspecified; Z3A.39 39 weeks gestation of pregnancy; Z87.59 Personal history of other complications of pregnancy, childbirth and the puerperium; Z23 Encounter for immunization; Z37.0 Single live birth; Z90.49 Acquired absence of other specified parts of digestive tract
CPT/HCPCS: 1961; 36415; 59025; 80307; 81001; 85025; 85027; 86850; 86900; 86901; 87491; 87591; 87635; 88302; 90707; 90715; 94760; 94799; C1765; J0131; J1170; J1885; J2250; J2300; J2370; J2405; J2590; J3010; J3490

== ENCOUNTER 2020-09-13 20:16 | Emergency (ER) | payer MEDICAID ==
[2020-09-13] MEDS ORDERED: KETOROLAC TROMETHAMINE INJ/PF 30 MG/1 ML SDV IM ONE (21:51)
--- NOTE | 2020-09-13 21:51 | ER Document Report ---
ED Medical Screen (RME) - General Chief Complaint: Back Pain Stated Complaint: BACK PAIN,CAN'T WALK Time Seen by Provider: 09/13/20 21:45 Mode of Arrival: Wheelchair Information source: Patient Notes: 35-year-old female presents to ED for complaint of low back pain. She states she went to hand her 6-month-old daughter to her 15-year-old daughter and when she bent over she felt a pop in her back and then it was very painful to stand straight up to walk. She states her mom dropped her off at the emergency room. States her mother brought a wheelchair L to the emergency room and brought her into the emergency room. She states she was able to walk bent over with her mother and 10-year-old helping her to the car. She states she has not had any saddle anesthesia or any incontinence of urine or bowel. She states last menstrual period was 2 weeks ago. Has had a tubal ligation. I have greeted and performed a rapid initial assessment of this patient. A comprehensive ED assessment and evaluation of the patient, analysis of test results and completion of medical decision making process will be conducted by an additional ED providers. TRAVEL OUTSIDE OF THE [place] IN LAST 30 DAYS: No - Related Data Allergies/Adverse Reactions: No Known Allergies Allergy (Verified 03/14/20 09:27) Past Medical History - General Information source: Patient - Social History Cigarette use (# per day): No Frequency of alcohol use: Occasional Drug Abuse: None Lives with: Family Family history: Reviewed & Not Pertinent - Past Medical History Cardiac Medical History: Reports: None Pulmonary Medical History: Reports: Hx Pneumonia - child EENT Medical History: Reports: None Neurological Medical History: Reports: Hx Migraine Endocrine Medical History: Reports: None Renal/ Medical History: Reports: None Malignancy Medical History: Reports: None GI Medical History: Reports: Hx Gastroesophageal Reflux Disease - REFLUX WITH Musculoskeltal Medical History: Reports Hx Musculoskeletal Trauma Skin Medical History: Reports None Psychiatric Medical History: Reports: Hx Anxiety, Hx Attention Deficit Hyperactivity Disorder Traumatic Medical History: Reports: Hx Fractures Infectious Medical History: Reports: None Past Surgical History: Reports: Hx Cholecystectomy, Hx Tubal Ligation, Other - Repaired perineum 3 months after childbirth - Immunizations Immunizations up to date: Yes Hx Diphtheria, Pertussis, Tetanus Vaccination: Yes Physical Exam - Vital signs Vitals: Temp Pulse Resp BP Pulse Ox 98.6 F 91 16 129/83 H 98 09/13/20 20:58 09/13/20 20:58 09/13/20 20:58 09/13/20 20:58 09/13/20 20:58 Course - Vital Signs Vital signs: Temp Pulse Resp BP Pulse Ox 98.6 F 91 16 129/83 H 98 09/13/20 20:58 09/13/20 20:58 09/13/20 20:58 09/13/20 20:58 09/13/20 20:58
--- NOTE | 2020-09-13 22:50 | RADIOLOGY REPORT (SQ) ---
EXAM DESCRIPTION: X-RAY Lumbar Spine - Five views CLINICAL HISTORY: Low back pain radiating to both legs COMPARISON: None available TECHNIQUE: Five views of the lumbar spine. FINDINGS: There are five lumbar-type vertebral bodies. There is no loss of the vertebral body height. Intervertebral disc spaces are well maintained. The paravertebral soft tissues are unremarkable. Evaluation of alignment demonstrates trace retrolisthesis L5 on S1 measuring up to 6 mm. The lumbosacral junction is unremarkable. IMPRESSION: Mild retrolisthesis of L5 on S1. No vertebral body compression deformity. No advanced degenerative changes.
[2020-09-13 23:46] LABS: APPEARANCE,URINE CLOUDY; BILIRUBIN,URINE NEGATIVE (NEGATIVE); COLOR,URINE AMBER; GLUCOSE, URINE NEGATIVE (NEGATIVE); KETONES,URINE TRACE mg/dL (NEGATIVE); LEUKOCYTE ESTERASE,URINE LARGE (NEGATIVE); NITRITE,URINE NEGATIVE (NEGATIVE); PROTEIN,URINE 100 mg/dL (NEGATIVE); URINE SPECIFIC GRAVITY 1.031; UROBILINOGEN,URINE NEGATIVE mg/dL (<2.0)
[2020-09-14] MEDS ORDERED: DIAZEPAM INJ 10 MG/2 ML DISP.SYRIN IM ONE (00:05)
[2020-09-14] MEDS ORDERED: MORPHINE SULFATE 10 MG/ML INJ IM ONE (00:05)
--- NOTE | 2020-09-14 01:19 | RADIOLOGY REPORT (SQ) ---
CT lumbar spine without contrast on 09/14/2020 at 12:36 AM CLINICAL INDICATION: Severe low back pain TECHNIQUE: Multiple axial images are obtained throughout the lumbar spine without the administration of contrast. Sagittal and coronal reformatted images are also performed and reviewed. This exam was performed according to our departmental dose-optimization program, which includes automated exposure control, adjustment of the mA and/or kV according to patient size and/or use of iterative reconstruction technique. Total DLP is 1296.66 mGy*cm. COMPARISON: None FINDINGS: Reformatted images reveal normal alignment of the lumbar spine. There are no acute fracture lines. There is a small nonobstructing stone in the lower pole of the left kidney. At the L4-5 level, minimal broad-based disc bulge produces minimal canal stenosis and very mild bilateral foraminal narrowing. At the L5-S1 level, mild central disc protrusion produces minimal central canal stenosis and no significant foraminal narrowing. No other levels of canal stenosis or foraminal narrowing are noted. IMPRESSION: 1. Mild degenerative disc disease in the lower lumbar spine producing some very mild canal stenosis as above. 2. No acute bony abnormality within the lumbar spine. 3. Left nephrolithiasis.
[2020-09-14] MEDS ORDERED: DEXAMETHASONE SOD PHOS INJ 10 MG/1 ML VIAL IM ONE (01:41)
[2020-09-14] MEDS ORDERED: METHYLPREDNISOLONE INJ 125 MG/2 ML SDV IV ONE (02:08)
[2020-09-14] MEDS ORDERED: HYDROMORPHONE HCL INJ/PF 2 MG/ML AMPULE IV ONE (02:09)
--- NOTE | 2020-09-14 02:09 | ER Document Report ---
ED General - General Chief Complaint: Low Back Pain Stated Complaint: BACK PAIN,CAN'T WALK Time Seen by Provider: 09/13/20 21:45 Primary Care Provider: GLENN HURLEY JR, DO [ACTIVE PROVISIONAL STAFF] - Follow up as needed Mode of Arrival: Wheelchair Information source: Patient Notes: 35-year-old female patient presents emergency department chief complaint of acute onset low back pain. Patient reports she was bending over holding her child when all of a sudden she felt a pop in her low back and immediately had sudden onset pain. She states this occurred earlier this morning. She states that she has been unable to stand straight since then. She has had occasional low back pain in the past but never anything like this. Patient denies any bowel or urinary incontinence, denies any urinary retention or saddle anesthesia. TRAVEL OUTSIDE OF THE [place] IN LAST 30 DAYS: No - Related Data Allergies/Adverse Reactions: No Known Allergies Allergy (Verified 03/14/20 09:27) Past Medical History - General Information source: Patient - Social History Smoking Status: Never Smoker Cigarette use (# per day): No Frequency of alcohol use: Occasional Drug Abuse: None Lives with: Family Family History: Reviewed & Not Pertinent - Past Medical History Cardiac Medical History: Reports: None Pulmonary Medical History: Reports: Hx Pneumonia - child EENT Medical History: Reports: None Neurological Medical History: Reports: Hx Migraine Endocrine Medical History: Reports: None Renal/ Medical History: Reports: None Malignancy Medical History: Reports: None GI Medical History: Reports: Hx Gastroesophageal Reflux Disease - REFLUX WITH Musculoskeletal Medical History: Reports Hx Musculoskeletal Trauma Skin Medical History: Reports None Psychiatric Medical History: Reports: Hx Anxiety, Hx Attention Deficit Hyperactivity Disorder Traumatic Medical History: Reports: Hx Fractures Infectious Medical History: Reports: None Past Surgical History: Reports: Hx Cholecystectomy, Hx Tubal Ligation, Other - Repaired perineum 3 months after childbirth - Immunizations Immunizations up to date: Yes Hx Diphtheria, Pertussis, Tetanus Vaccination: Yes Review of Systems - Review of Systems Musculoskeletal: Back pain -: Yes All other systems reviewed and negative Physical Exam - Vital signs Vitals: Temp Pulse Resp BP Pulse Ox 98.6 F 91 16 129/83 H 98 09/13/20 20:58 09/13/20 20:58 09/13/20 20:58 09/13/20 20:58 11/05/20 20:58 - Notes Notes: PHYSICAL EXAMINATION: GENERAL: Appears to be in moderate distress. HEAD: Atraumatic, normocephalic. EYES: Pupils equal round and reactive to light, extraocular movements intact, conjunctiva are normal. ENT: Nares patent, oropharynx clear without exudates. Moist mucous membranes. NECK: Normal range of motion, supple without lymphadenopathy LUNGS: Breath sounds clear to auscultation bilaterally and equal. No wheezes rales or rhonchi. HEART: Regular rate and rhythm without murmurs ABDOMEN: Soft, nontender, nondistended abdomen. No guarding, no rebound. No masses appreciated. Female : deferred Musculoskeletal: Normal range of motion, no pitting or edema. No cyanosis. Patient has vertebral tenderness in the lumbar region, no step-off or deformity. Positive straight leg raises bilaterally at 45 degrees. NEUROLOGICAL: Cranial nerves grossly intact. Normal speech. Normal sensory, motor exams PSYCH: Normal mood, normal affect. SKIN: Warm, Dry, normal turgor, no rashes or lesions noted. Course - Re-evaluation Re-evalutation: This patient has significant pain with any movement. Medications here in the emergency department have not helped her pain. Imaging has been obtained as outlined below. We are currently awaiting MRI results. Patient has a history of a tubal ligation which is why test was not done. Lumbar Spine X-Ray 09/13/20 21:52 IMPRESSION: Mild retrolisthesis of L5 on S1. No vertebral body compression deformity. No advanced degenerative changes. Lumbar Spine CT 09/14/20 00:07 IMPRESSION: 1. Mild degenerative disc disease in the lower lumbar spine producing some very mild canal stenosis as above. 2. No acute bony abnormality within the lumbar spine. 3. Left nephrolithiasis. Laboratory 09/13/20 22:30 Urine Color GAGANDEEP Urine Appearance CLOUDY Urine pH 6.0 Ur Specific [place] 1.031 Urine Protein 100 H Urine Glucose (UA) NEGATIVE Urine Ketones TRACE H Urine Blood NEGATIVE Urine Nitrite NEGATIVE Urine Bilirubin NEGATIVE Urine Urobilinogen NEGATIVE Ur Leukocyte Esterase LARGE H Urine WBC (Auto) 148 Urine RBC (Auto) 2 Urine Bacteria (Auto) 1+ Squamous Epi Cells Auto 16 U Non-Squamous Epis Auto 1 Urine Mucus (Auto) MANY Urine Ascorbic Acid NEGATIVE Urinalysis with large leukocyte esterase, 148 white blood cells, 1+ bacteria and 6-10 squamous epithelials. Patient has absolutely no complaints of dysuria, urinary frequency, urgency or fever. We will culture the urine. Will initiate antibiotic treatment based on culture report since patient is asymptomatic. lumbar spine MRI was ordered per the recommendation of attending physician due to patient's pain. Lumbar spine MRI shows mild disc bulge. Likely cause of patient's pain. Patient's pain is somewhat improved here in the emergency department. She will be sent home on Canvas, Flexeril and lidocaine. Plan to follow-up with primary care and Ortho if needed. Discussed ED return precautions with patient, patient verbalized understanding and agreement with same. - Vital Signs Vital signs: Temp Pulse Resp BP Pulse Ox 98.0 F 83 14 108/53 L 97 09/14/20 04:42 09/14/20 09:21 09/14/20 09:21 09/14/20 09:21 09/14/20 09:21 - Laboratory Laboratory results interpreted by me: 09/13/20 22:30 Urine Protein 100 H Urine Ketones TRACE H Ur Leukocyte Esterase LARGE H Discharge - Discharge Clinical Impression: Back pain Qualifiers: Back pain location: low back pain Chronicity: acute Back pain laterality: bilateral Sciatica presence: with sciatica Sciatica laterality: bilateral sciatica Qualified Code(s): M54.42 - Lumbago with sciatica, left side Condition: Stable Disposition: HOME, SELF-CARE Additional Instructions: You have been seen in the Emergency Department (ED) today for back pain. Your workup and exam have not shown any acute abnormalities and you are likely suffering from muscle strain or possible problems with your discs, but there is no treatment that will fix your symptoms at this time. Please take the medication that has been prescribed as directed. Please also take [id number]-[id number] ibuprofen 600 mg every 6 hours. You should also purchase a local lidocaine cream such as "aspercreme with lidocaine" and use per bottle instructions to the affected area. Apply heat to the area as often as you are able. Continue to keep active and avoid prolonged periods of bed rest. Please follow up with your doctor as soon as possible regarding today's ED visit and your back pain. Return to the ED for worsening back pain, fever, weakness or numbness of either leg, or if you develop either (1) an inability to urinate or have bowel movements, or (2) loss of your ability to control your bathroom functions (if you start having "accidents"), or if you develop other new s ymptoms that concern you.concern you. Prescriptions: Hydrocodone/Acetaminophen [Canvas 5-325 mg Tablet] 1 tab PO Q6HP PRN #12 tablet PRN Reason: Cyclobenzaprine HCl [Flexeril 10 mg Tablet] 10 mg PO TIDP PRN #20 tab PRN Reason: Lidocaine [Lidoderm 5% (700 mg) Transdermal Patch] 1 patch TP DAILY #30 adh..patch Forms: Return to Work Referrals: GLENN HURLEY JR, DO [ACTIVE PROVISIONAL STAFF] - Follow up as needed
[2020-09-14] MEDS ORDERED: CITALOPRAM HYDROBROMIDE 20 MG TABLET PO ONE (02:17)
--- NOTE | 2020-09-14 08:19 | RADIOLOGY REPORT (SQ) ---
EXAM DESCRIPTION: MRI LUMBAR SPINE WITHOUT IMAGES COMPLETED DATE/TIME: 09/14/2020 7:53 am REASON FOR STUDY: severe low back pain COMPARISON: None. TECHNIQUE: Sagittal and Axial imaging includes T1, T2, STIR and gradient echo sequences. Coronal T2/ HASTE imaging. LIMITATIONS: None. FINDINGS: VISUALIZED UPPER ABDOMEN: Limited evaluation. No acute or suspicious findings suggested. SEGMENTATION: No transitional anatomy. The lowest well-developed disc space is labeled L5-S1. ALIGNMENT: Anatomic. VERTEBRAE: Intact. BONE MARROW: Normal. No marrow replacement or reactive changes. DISC SIGNAL: Early desiccation at L4-L5 and L5-S1. POSTERIOR ELEMENTS: Generally intact. No pars defect evident. HARDWARE: None in the spine. CORD AND CONUS: Normal in size and signal intensity. Conus at the appropriate level. SOFT TISSUES: No aortic aneurysm seen. No bulky retroperitoneal adenopathy or mass. No paraspinal mas s or fluid. L1-L2: No significant spinal stenosis or exit foraminal stenosis. L2-L3: No significant spinal stenosis or exit foraminal stenosis. L3-L4: No significant spinal stenosis or exit foraminal stenosis. L4-L5: No significant spinal stenosis or exit foraminal stenosis. L5-S1: Central left paracentral protrusion at L5-S1. This is sub- ligamentous. LOWER THORACIC: Incompletely imaged. No stenosis seen. SACRUM: Visualized upper sacrum intact. OTHER: No other significant findings. IMPRESSION: Sub- ligamentous central left paracentral disc protrusion at L5-S1. No central stenosis or nerve root impingement. TECHNICAL DOCUMENTATION: JOB ID: [id number] [employer]- All Rights Reserved Reading location - IP/workstation name: [email or web address]
[2020-09-14] MEDS ORDERED: OXYCODONE-ACETAMINOPHEN 5-325 MG TABLET PO ONE (08:51)
[2020-09-14] MEDS ORDERED: CYCLOBENZAPRINE HCL 10 MG TABLET PO ONE (08:52)
[2020-09-14 09:23] VITALS: BP 108/53
== END 2020-09-14 09:21 | disposition home or self-care (01) ==
LOC: ER 20:16
DX: M51.16 Intervertebral disc disorders with radiculopathy, lumbar region (principal); M51.17 Intervertebral disc disorders with radiculopathy, lumbosacral region; N20.0 Calculus of kidney
CPT/HCPCS: 99285; 96372; 96374; 96375; 87086; 81001; 72148; 72110; 72131; J3490 ×2; J3360; J2930; J1885; J2270; J1170